=== PATIENT | male | born 1955 | race Hispanic/Latino ===

== ENCOUNTER → 2018-03-15 | Outpatient (CLI) | payer OTHER ==
--- NOTE | 2018-03-15 09:09 | Diagnostic Imaging Report ---
Exam: Testicular ultrasound with doppler. Clinical History: Epididymitis. Findings: Sonographic evaluation of the testicles. Both testes are normal in echogenicity and size without intratesticular mass. Negative for varicocele. Small right hydrocele with echogenic debris. The right testes measures 4.3 x 2.5 x 2.7 cm and the left testes measures 4 x 2.2 x 2.8 cm. Normal doppler flow. The right epidymidis measures 1.1 cm and the left epidiymis measures 1.1 cm. No evidence of hyperemia. Multiple anechoic cysts in the left epidiymis. Impression: No sonographic evidence of testicular torsion or epididymitis. Small right mildly complex hydrocele. Right sided simple appearing epididymal cysts. Signed by: Dr. Dario Rogers MD on 03/15/2018 9:06 AM
== END ==
LOC: US 07:54
PROVIDERS: ATTEND Urology
DX: N45.1 Epididymitis (principal)
CPT/HCPCS: 76870; 93976